=== PATIENT | female | born 1950 | race African-American/Black ===

== ENCOUNTER 2020-12-08 22:45 | Inpatient (IN) ==
[2020-12-09 00:17] LABS: Basophils % 0.2 %; Eosinophils # 0.3 K/mcL (0.0-0.6); Hematocrit 30.4 % (35.3-44.9); Hemoglobin 9.4 g/dL (11.5-15.4); Immature Granulocytes % 0.8 % (0-4); Lymphocytes # 0.9 K/mcL (0.6-4.6); Lymphocytes % 8.8 %; Mean Corpuscular HGB Conc 30.9 g/dL (31.6-35.5); Mean Corpuscular Hemoglobin 30.8 pg (28.0-33.3); Mean Corpuscular Volume 99.7 fL (83.0-100.0); Mean Platelet Volume 9.7 fL (9.4-12.4); Monocytes # 1.5 K/mcL (0.0-1.3); Monocytes % 14.2 %; Neutrophils # 7.5 K/mcL (1.6-8.9); Platelet Count 286 K/mcL (140-400); Red Blood Count 3.05 M/mcL (3.82-4.97); Red Cell Distribution Width 13.1 % (11.5-14.5); White Blood Count 10.3 K/mcL (4.3-11.1)
[2020-12-09] MEDS ORDERED: Norepinephrine 4 MG/254 ML IV.SOLN IVC SCH (02:30)
[2020-12-09 02:43] LABS: Influenza A PCR Negative (Negative); Influenza B PCR Negative (Negative); Resp. Syncytial Virus PCR Negative (Negative)
[2020-12-09 02:44] LABS: SARS-CoV-2 by PCR (In House) Negative (Negative)
[2020-12-09] MEDS ORDERED: Isovue-370 500 ML BOTTLE IVP ONE (03:37)
[2020-12-09] MEDS ORDERED: Naloxone 0.4 MG/ML INJ IVP PRN (09:20)
[2020-12-09] MEDS ORDERED: Ringers Solution, Lactated 1,000 ML IVC ONE (09:27)
[2020-12-09] MEDS ORDERED: Ringers Solution, Lactated 1,000 ML ONE (09:37)
[2020-12-09] MEDS ORDERED: Albumin 25% 25gram/100mL 25 GM/100 ML IV.SOLN IVPB ONE ×2 (12:45→20:59)
[2020-12-09 13:00] LABS: Bacteria,Urine Few per hpf (None-Few); Bilirubin,Urine Negative (Negative); Blood,Urine Trace (Negative); Clarity,Urine Turbid (Clear); Color,Urine Yellow (Yellow); Glucose,Urine (UA) Normal (Normal); Hyaline Casts,Urine Few per lpf (None Seen); Ketones,Urine Negative (Negative); Leukocyte Esterase,Urine Trace (Negative); Mucus,Urine Few per lpf (None-Few); Nitrite,Urine Negative (Negative); PH,Urine 5.5 pH Units (5.0-8.0); Protein,Urine 50 mg/dL (Neg-Trace); RBC,Urine 0-3 per hpf (0-3); Renal Epithelial Cells,Urine Few per hpf (None-Few); Specific Gravity,Urine 1.022 (1.010-1.025); Squamous Epithelial Cell,Urine Moderate per hpf (None-Few); Transitional Epi Cells,Urine Few per hpf (None-Few); Urobilinogen,Urine Normal (Normal)
[2020-12-09] MEDS: *HR* Heparin 5,000 UNIT/ML VIAL SQ SCH ×2 (13:20→21:15)
[2020-12-09 13:46] LABS: INR 1.2; Prothrombin Time 13.8 Seconds (9.4-12.1)
[2020-12-09 13:56] LABS: Albumin 3.3 g/dL (3.5-5.7); Albumin/Globulin Ratio 1.3 (1.1-2.2); Bilirubin,Total 0.4 mg/dL (0.3-1.0); Calcium 9.2 mg/dL (8.6-10.3); Globulin 2.6 g/dL (2.4-3.5); Potassium 4.2 mEq/L (3.5-5.1); Total Protein 5.9 g/dL (6.4-8.9)
[2020-12-09] MEDS ORDERED: Perit. Dialysis with Dex 1.5 % 12,000 ML PERITONEAL ONE (21:44)
[2020-12-10 01:31] LABS: Hematocrit 23.9 % (35.3-44.9); Mean Corpuscular HGB Conc 31.4 g/dL (31.6-35.5); Mean Corpuscular Hemoglobin 31.3 pg (28.0-33.3); Mean Corpuscular Volume 99.6 fL (83.0-100.0); Mean Platelet Volume 9.6 fL (9.4-12.4); Platelet Count 246 K/mcL (140-400); White Blood Count 7.1 K/mcL (4.3-11.1)
[2020-12-10 01:32] LABS: Hemoglobin 7.5 g/dL (11.5-15.4)
[2020-12-10 01:34] LABS: Hepatitis B Surface Antibody < 3.10 mIU/mL
[2020-12-10 01:46] LABS: Hepatitis B Surface Antigen Nonreactive (Nonreactive)
[2020-12-10 01:50] LABS: Calcium 9.2 mg/dL (8.6-10.3); Potassium 4.1 mEq/L (3.5-5.1)
[2020-12-10] MEDS ORDERED: Acetaminophen 325 MG TABLET PO ONE (02:08)
[2020-12-10] MEDS: *HR* Heparin 5,000 UNIT/ML VIAL SQ SCH ×3 (06:38→19:46)
[2020-12-10 13:47] LABS: Basophils % 0.4 %; Eosinophils # 0.2 K/mcL (0.0-0.6); Hematocrit 26.2 % (35.3-44.9); Hemoglobin 8.3 g/dL (11.5-15.4); Immature Granulocytes % 0.4 % (0-4); Lymphocytes # 0.8 K/mcL (0.6-4.6); Lymphocytes % 10.6 %; Mean Corpuscular HGB Conc 31.7 g/dL (31.6-35.5); Mean Corpuscular Hemoglobin 31.4 pg (28.0-33.3); Mean Corpuscular Volume 99.2 fL (83.0-100.0); Mean Platelet Volume 9.8 fL (9.4-12.4); Monocytes % 13.3 %; Neutrophils # 5.3 K/mcL (1.6-8.9); Platelet Count 259 K/mcL (140-400); Red Blood Count 2.64 M/mcL (3.82-4.97); Red Cell Distribution Width 13.1 % (11.5-14.5); Segmented Neutrophils % 72.3 %; White Blood Count 7.3 K/mcL (4.3-11.1)
[2020-12-10 13:51] LABS: % Iron Saturation 65 % (15-50); Amylase 66 Units/L (29-103); Iron 143 mcg/dL (50-170); Lipase 63 Units/L (11-82); Transferrin 158 mg/dL (203-362)
[2020-12-10 15:33] LABS: RBC,Peritoneal Fluid < 2000 RBC/mcL
[2020-12-10 15:36] LABS: Appearance of Peritoneal Fl CLEAR (Clear)
[2020-12-10 15:59] LABS: Basophils,Peritoneal Fluid 0 %; Eosinophils,Peritoneal Fluid 0 %
[2020-12-10] MEDS ORDERED: Perit. Dialysis with Dex 2.5 % 12,000 ML PERITONEAL ONE (18:15)
[2020-12-10] MEDS ORDERED: Gentamicin Oint 15 GM TUBE TP SCH (19:00)
[2020-12-11 02:57] LABS: Hematocrit 25.1 % (35.3-44.9); Hemoglobin 8.2 g/dL (11.5-15.4); Mean Corpuscular HGB Conc 32.7 g/dL (31.6-35.5); Mean Corpuscular Hemoglobin 31.9 pg (28.0-33.3); Mean Corpuscular Volume 97.7 fL (83.0-100.0); Mean Platelet Volume 9.6 fL (9.4-12.4); Platelet Count 276 K/mcL (140-400); Red Blood Count 2.57 M/mcL (3.82-4.97); Red Cell Distribution Width 12.9 % (11.5-14.5); White Blood Count 7.3 K/mcL (4.3-11.1)
[2020-12-11 03:19] LABS: Calcium 8.9 mg/dL (8.6-10.3); Potassium 3.8 mEq/L (3.5-5.1)
[2020-12-11 03:51] VITALS: TEMP 98
[2020-12-11] MEDS: *HR* Heparin 5,000 UNIT/ML VIAL SQ SCH (05:14)
[2020-12-11 07:07] VITALS: BP 101/56; PULSE 77; O2SAT 95
== END 2020-12-11 11:28 | disposition home or self-care (01) | DRG 871 ==
LOC: EMEROOARM 22:45 → CDU 22:45 → SUATTDRO 12-09 10:41 → 2ANU 12-09 11:18
PROVIDERS: ADMIT Internal Medicine; ATTEND Internal Medicine

== ENCOUNTER 2021-02-21 13:58 | Inpatient (IN) ==
[2021-02-21] MEDS ORDERED: cefTRIAXone 2,000 MG in 0.9 % Sodium Chloride Mini Bag 100 ML IVPB ONE (14:14)
[2021-02-21] MEDS ORDERED: Ondansetron 4 MG/2 ML VIAL IVP ONE (14:40)
[2021-02-21 15:11] LABS: VBG HCO3 27 mEq/L (21-27); VBG PCO2 52 mmHg (41-51); VBG PH 7.32 pH Units (7.32-7.42); VBG PO2 32 mmHg (25-50)
[2021-02-21 15:16] LABS: Basophils % 0.1 %; Eosinophils % 0.4 %; Hematocrit 34.3 % (35.3-44.9); Hemoglobin 10.7 g/dL (11.5-15.4); Immature Granulocytes % 0.7 % (0-4); Lymphocytes # 0.6 K/mcL (0.6-4.6); Lymphocytes % 8.6 %; Mean Corpuscular HGB Conc 31.2 g/dL (31.6-35.5); Mean Corpuscular Volume 99.4 fL (83.0-100.0); Mean Platelet Volume 10.1 fL (9.4-12.4); Monocytes # 0.5 K/mcL (0.0-1.3); Monocytes % 7.3 %; Neutrophils # 5.7 K/mcL (1.6-8.9); Platelet Count 254 K/mcL (140-400); Red Blood Count 3.45 M/mcL (3.82-4.97); Red Cell Distribution Width 13.7 % (11.5-14.5); Segmented Neutrophils % 82.9 %; White Blood Count 6.9 K/mcL (4.3-11.1)
[2021-02-21] MEDS ORDERED: 0.9 % Sodium Chloride 500 ML IVC ONE ×2 (15:17→17:15)
[2021-02-21 15:23] LABS: INR 1.1; Prothrombin Time 12.8 Seconds (9.4-12.1)
[2021-02-21 15:26] LABS: Activated Partial Thrombo Time 25.5 Seconds (26.0-36.0)
[2021-02-21 15:49] LABS: Albumin 3.4 g/dL (3.5-5.7); Albumin/Globulin Ratio 1.3 (1.1-2.2); Bilirubin,Indirect 0.4 mg/dL (0.0-1.0); Bilirubin,Total 0.4 mg/dL (0.3-1.0); Calcium 9.5 mg/dL (8.6-10.3); Globulin 2.6 g/dL (2.4-3.5); Magnesium 1.4 mg/dL (1.6-2.6); Potassium 2.9 mEq/L (3.5-5.1); Troponin I 0.06 ng/mL (< 0.04)
[2021-02-21] MEDS: 0.9 % Sodium Chloride 1,000 ML IVC SCH ×2 (15:54→21:29)
[2021-02-21] MEDS ORDERED: Magnesium Sulfate 1 GM/102 ML PIGGYBACK IVPB ONE ×2 (16:32→18:04)
[2021-02-21 17:31] LABS: Appearance of Peritoneal Fl HAZY (Clear)
[2021-02-21 17:42] LABS: Amylase,Peritoneal Fluid < 10 Units/L (No Ref Range); Glucose,Peritoneal Fluid 260 mg/dL (No Ref Range); RBC,Peritoneal Fluid < 2000 RBC/mcL; Total Protein,Peritoneal Fluid < 2.0 g/dL
[2021-02-21] MEDS ORDERED: Naloxone 0.4 MG/ML INJ IVP PRN (17:44)
[2021-02-21 17:51] LABS: Adenovirus Not Detected (Not Detect); Coronavirus 229E Not Detected (Not Detect); Coronavirus HKU1 Not Detected (Not Detect); Coronavirus NL63 Not Detected (Not Detect); Coronavirus OC43 Not Detected (Not Detect)
[2021-02-21 17:52] LABS: Bordetella Pertussis Not Detected (Not Detect); Chlamydophila pneumoniae Not Detected (Not Detect); Human Metapneumovirus Not Detected (Not Detect); Human Rhinovirus/Enterovirus Not Detected (Not Detect); Influenza A Subtype 2009 H1 Not Detected (Not Detect); Influenza B Not Detected (Not Detect); Mycoplasma pneumoniae Not Detected (Not Detect); Parainfluenza Virus 1 Not Detected (Not Detect); Parainfluenza Virus 2 Not Detected (Not Detect); Parainfluenza Virus 3 Not Detected (Not Detect); Parainfluenza Virus 4 Not Detected (Not Detect); Respiratory Syncytial Virus Not Detected (Not Detect); SARS-CoV-2 DETECTED (Not Detect)
[2021-02-21] MEDS ORDERED: Vancomycin 1,750 MG/517.5 ML IV.SOLN IVPB ONE (18:00)
[2021-02-21 18:16] LABS: Basophils,Peritoneal Fluid 0 %; Eosinophils,Peritoneal Fluid 0 %
[2021-02-21] MEDS: Aspirin Enteric Coated 325 MG Tablet PO SCH (21:35)
[2021-02-22] MEDS ORDERED: Dextrose Gel 15 GM/37.5 ML TUBE PO PRN ×2 (00:11)
[2021-02-22] MEDS ORDERED: *HR* Dextrose 50 % in Water (Syg) 50 ML SYRINGE IVP PRN (00:11)
[2021-02-22] MEDS ORDERED: D5% in Water 1,000 ML IVC PRN (00:11)
[2021-02-22] MEDS ORDERED: Potassium Chloride Elixir 20 MEQ/15 ML UDC PO ONE ×2 (00:12→15:00)
[2021-02-22] MEDS: Insulin LISPRO 300 UNITS/3 ML VIAL SUBQ SCH ×5 (00:37→21:12)
[2021-02-22 05:41] LABS: Basophils % 0.2 %; Hematocrit 30.7 % (35.3-44.9); Hemoglobin 9.9 g/dL (11.5-15.4); Immature Granulocytes % 2.4 % (0-4); Lymphocytes # 0.9 K/mcL (0.6-4.6); Lymphocytes % 4.5 %; Mean Corpuscular HGB Conc 32.2 g/dL (31.6-35.5); Mean Corpuscular Hemoglobin 32.7 pg (28.0-33.3); Mean Corpuscular Volume 101.3 fL (83.0-100.0); Mean Platelet Volume 9.8 fL (9.4-12.4); Monocytes # 1.2 K/mcL (0.0-1.3); Monocytes % 5.7 %; Platelet Count 252 K/mcL (140-400); Red Blood Count 3.03 M/mcL (3.82-4.97); Red Cell Distribution Width 13.8 % (11.5-14.5); Segmented Neutrophils % 87.2 %; White Blood Count 20.6 K/mcL (4.3-11.1)
[2021-02-22 05:55] LABS: Estimated Average Glucose 134 mg/dl; Hemoglobin A1C 6.3 %
[2021-02-22] MEDS: *HR* Heparin 5,000 UNIT/ML VIAL SQ SCH ×2 (06:06→17:15)
[2021-02-22] MEDS: 0.9 % Sodium Chloride 1,000 ML IVC SCH ×2 (06:16→21:01)
[2021-02-22 06:20] LABS: Calcium 8.5 mg/dL (8.6-10.3); Magnesium 1.5 mg/dL (1.6-2.6); Phosphorous 3.8 mg/dL (2.7-4.5); Potassium 3.3 mEq/L (3.5-5.1)
[2021-02-22] MEDS ORDERED: Perflutren Lipid Microsphere 1.3 ML in 0.9 % Sodium Chloride 8.7 ML IVP PRN (08:09)
[2021-02-22 11:48] LABS: Appearance of Peritoneal Fl CLOUDY (Clear)
[2021-02-22 12:47] LABS: Basophils,Peritoneal Fluid 0 %; Eosinophils,Peritoneal Fluid 0 %
[2021-02-22 13:48] LABS: Hepatitis B Surface Antibody < 3.10 mIU/mL
[2021-02-22 13:59] LABS: Hepatitis B Surface Antigen Nonreactive (Nonreactive)
[2021-02-22] MEDS ORDERED: cefTRIAXone 2,000 MG in 0.9 % Sodium Chloride Mini Bag 100 ML IVPB SCH (16:00)
[2021-02-22] MEDS: Cefepime HCl 1,000 MG in 0.9 % Sodium Chloride Mini Bag 100 ML IVPB SCH (17:15)
[2021-02-22] MEDS: Aspirin Enteric Coated 325 MG Tablet PO SCH (17:15)
[2021-02-23 02:06] LABS: Hematocrit 26.6 % (35.3-44.9); Mean Corpuscular HGB Conc 32.3 g/dL (31.6-35.5); Mean Corpuscular Hemoglobin 32.2 pg (28.0-33.3); Mean Corpuscular Volume 99.6 fL (83.0-100.0); Mean Platelet Volume 10.4 fL (9.4-12.4); Platelet Count 218 K/mcL (140-400); Red Blood Count 2.67 M/mcL (3.82-4.97); Red Cell Distribution Width 13.8 % (11.5-14.5)
[2021-02-23 02:16] LABS: Hemoglobin 8.6 g/dL (11.5-15.4); White Blood Count 19.4 K/mcL (4.3-11.1)
[2021-02-23 02:27] LABS: Calcium 7.9 mg/dL (8.6-10.3); Magnesium 1.9 mg/dL (1.6-2.6); Phosphorous 3.7 mg/dL (2.7-4.5); Potassium 3.8 mEq/L (3.5-5.1)
[2021-02-23 03:19] LABS: Lymphocytes # 0.6 K/mcL (0.6-4.6); Monocytes # 0.4 K/mcL (0.0-1.3); Neutrophils # 18.4 K/mcL (1.6-8.9)
[2021-02-23 03:20] LABS: Platelet Estimate Normal (Normal)
[2021-02-23] MEDS: *HR* Heparin 5,000 UNIT/ML VIAL SQ SCH ×2 (05:53→20:53)
[2021-02-23] MEDS: Insulin LISPRO 300 UNITS/3 ML VIAL SUBQ SCH ×4 (07:52→21:43)
[2021-02-23] MEDS ORDERED: Isovue-370 500 ML BOTTLE IVP ONE (10:14)
[2021-02-23] MEDS: 0.9 % Sodium Chloride 1,000 ML IVC SCH (10:47)
[2021-02-23] MEDS: *HR* Acetylcysteine 20% 600 MG/3 ML ORAL SYRINGE PO SCH ×2 (12:14→20:50)
[2021-02-23] MEDS: Ondansetron 4 MG/2 ML VIAL IVP PRN (12:42)
[2021-02-23] MEDS: Cefepime HCl 1,000 MG in 0.9 % Sodium Chloride Mini Bag 100 ML IVPB SCH (16:23)
[2021-02-23] MEDS: Ergocalciferol (VIT D2) 50,000 UNIT (1.25MG) CAP PO SCH (16:25)
[2021-02-23] MEDS: Aspirin Enteric Coated 325 MG Tablet PO SCH (17:14)
[2021-02-23 20:47] LABS: Bacteria,Urine Few per hpf (None-Few); Bilirubin,Urine Negative (Negative); Blood,Urine Small (Negative); Clarity,Urine Turbid (Clear); Color,Urine Light-Yellow (Yellow); Glucose,Urine (UA) Normal (Normal); Hyaline Casts,Urine Few per lpf (None Seen); Ketones,Urine Negative (Negative); Leukocyte Esterase,Urine Negative (Negative); Mucus,Urine Few per lpf (None-Few); Nitrite,Urine Negative (Negative); PH,Urine 5.5 pH Units (5.0-8.0); Protein,Urine 70 mg/dL (Neg-Trace); RBC,Urine 0-3 per hpf (0-3); Specific Gravity,Urine 1.016 (1.010-1.025); Squamous Epithelial Cell,Urine Many per hpf (None-Few); Urobilinogen,Urine Normal (Normal)
[2021-02-23 20:57] LABS: Campylobacter by PCR Not detected (Not detect)
[2021-02-23 20:58] LABS: C.difficile Toxin A/B Gene PCR DETECTED (Not detect); E. coli O157 by PCR Not detected (Not detect); Enteroaggregative E.coli(EAEC) Not detected (Not detect); Enteropathogenic E.coli(EPEC) Not detected (Not detect); Enterotoxigenic E.coli (ETEC) Not detected (Not detect); Plesiomonas shigelloides PCR Not detected (Not detect); Salmonella PCR Not detected (Not detect); Shigalike tox-prod E coli STEC Not detected (Not detect); Vibrio PCR Not detected (Not detect); Vibrio cholerae PCR Not detected (Not detect); Yersinia enterocolitica PCR Not detected (Not detect)
[2021-02-23 20:59] LABS: Adenovirus F 40/41 PCR Not detected (Not detect); Astrovirus PCR Not detected (Not detect); Cryptosporidium by PCR Not detected (Not detect); Cyclospora cayetanensis PCR Not detected (Not detect); Entamoeba histolytica PCR Not detected (Not detect); Giardia lamblia PCR Not detected (Not detect); Norovirus GI/GII PCR Not detected (Not detect); Rotavirus A PCR Not detected (Not detect); Sapovirus PCR Not detected (Not detect); Shig/EnteroinvasiveE coli EIEC Not detected (Not detect)
[2021-02-23] MEDS: Vancomycin Oral Soln 125 MG/2.5 ML UDC PO SCH (22:19)
[2021-02-24 02:32] LABS: Basophils % 0.1 %; Eosinophils # 0.1 K/mcL (0.0-0.6); Eosinophils % 0.3 %; Hematocrit 31.3 % (35.3-44.9); Hemoglobin 9.2 g/dL (11.5-15.4); Immature Granulocytes % 1.8 % (0-4); Lymphocytes # 0.6 K/mcL (0.6-4.6); Lymphocytes % 4.1 %; Mean Corpuscular HGB Conc 29.4 g/dL (31.6-35.5); Mean Corpuscular Volume 105.4 fL (83.0-100.0); Mean Platelet Volume 10.2 fL (9.4-12.4); Monocytes % 6.3 %; Neutrophils # 13.1 K/mcL (1.6-8.9); Platelet Count 209 K/mcL (140-400); Red Blood Count 2.97 M/mcL (3.82-4.97); Red Cell Distribution Width 13.7 % (11.5-14.5); Segmented Neutrophils % 87.4 %
[2021-02-24 03:03] LABS: BUN/Creatinine Ratio 4 (6-26); Blood Urea Nitrogen 47 mg/dL (8-23); Carbon Dioxide 17 mEq/L (23-29); Chloride 103 mEq/L (98-107); Glucose 64 mg/dL (70-105); Iron 89 mcg/dL (50-170); Magnesium 2.1 mg/dL (1.6-2.6); Osmolality,Calculated 282 (280-300); Potassium 3.5 mEq/L (3.5-5.1); Sodium 131 mEq/L (136-145); eGFR For African Americans 4 (> 60); eGFR For Non-African Americans 4 (> 60)
[2021-02-24 03:24] LABS: Ferritin > 1500 ng/mL (10-120)
[2021-02-24 03:46] LABS: Folate 4.5 ng/mL (3.0-16.0)
[2021-02-24] MEDS: *HR* Heparin 5,000 UNIT/ML VIAL SQ SCH ×3 (04:42→20:34)
[2021-02-24 05:53] LABS: % Iron Saturation 50 % (15-50); Transferrin 128 mg/dL (203-362)
[2021-02-24 07:56] LABS: Fluid Source for Triglycerides PERITONEAL FL
[2021-02-24] MEDS ORDERED: Perit. Dialysis with Dex 2.5 % 6,000 ML PERITONEAL ONE ×2 (09:00→19:00)
[2021-02-24] MEDS: *HR* Acetylcysteine 20% 600 MG/3 ML ORAL SYRINGE PO SCH ×2 (09:30→20:34)
[2021-02-24] MEDS: Vancomycin Oral Soln 125 MG/2.5 ML UDC PO SCH ×4 (09:31→20:34)
[2021-02-24] MEDS: Insulin LISPRO 300 UNITS/3 ML VIAL SUBQ SCH ×4 (09:31→20:44)
[2021-02-24] MEDS: 0.9 % Sodium Chloride 1,000 ML IVC SCH (09:31)
[2021-02-24 10:04] LABS: Triglycerides,Body Fluid 16 mg/dL
[2021-02-24] MEDS ORDERED: 0.9 % Sodium Chloride 1,000 ML IVC SCH (11:00)
[2021-02-24] MEDS: Aspirin Enteric Coated 81 MG Tablet PO SCH (17:19)
[2021-02-24] MEDS ORDERED: Perit. Dialysis with Dex 1.5 % 6,000 ML PERITONEAL ONE (19:00)
[2021-02-24] MEDS: Lactobacillus 1 EACH CAP.SPRINK PO SCH (20:32)
[2021-02-25] MEDS: 0.9 % Sodium Chloride 1,000 ML IVC SCH (05:00)
[2021-02-25] MEDS: *HR* Heparin 5,000 UNIT/ML VIAL SQ SCH ×3 (05:01→21:18)
[2021-02-25 06:12] LABS: Calcium 7.8 mg/dL (8.6-10.3); Magnesium 1.9 mg/dL (1.6-2.6); Phosphorous 2.5 mg/dL (2.7-4.5); Potassium 3.2 mEq/L (3.5-5.1)
[2021-02-25] MEDS: Lactobacillus 1 EACH CAP.SPRINK PO SCH ×2 (07:59→21:18)
[2021-02-25] MEDS: Insulin LISPRO 300 UNITS/3 ML VIAL SUBQ SCH ×4 (07:59→21:19)
[2021-02-25] MEDS: Vancomycin Oral Soln 125 MG/2.5 ML UDC PO SCH ×4 (07:59→21:17)
[2021-02-25] MEDS ORDERED: PERIT DIALYSIS PERITONEAL ONE (09:00)
[2021-02-25] MEDS ORDERED: VANCOMYCIN PERITONEAL ONE (09:00)
[2021-02-25] MEDS ORDERED: DEX PERITONEAL ONE (09:00)
[2021-02-25] MEDS ORDERED: Perit. Dialysis with Dex 2.5 % 2,000 ML PERITONEAL ONE (10:00)
[2021-02-25 12:18] LABS: Basophils % 0.2 %; Eosinophils # 0.3 K/mcL (0.0-0.6); Eosinophils % 3.4 %; Lymphocytes # 0.4 K/mcL (0.6-4.6); Lymphocytes % 4.5 %; Mean Corpuscular Hemoglobin 31.4 pg (28.0-33.3); Mean Platelet Volume 9.9 fL (9.4-12.4); Monocytes # 0.8 K/mcL (0.0-1.3); Monocytes % 10.4 %; Neutrophils # 6.3 K/mcL (1.6-8.9); Platelet Count 226 K/mcL (140-400); Red Blood Count 2.55 M/mcL (3.82-4.97); Red Cell Distribution Width 13.2 % (11.5-14.5); Segmented Neutrophils % 78.5 %; White Blood Count 8.1 K/mcL (4.3-11.1)
[2021-02-25] MEDS: Aspirin Enteric Coated 81 MG Tablet PO SCH (17:05)
[2021-02-25] MEDS ORDERED: Perit. Dialysis with Dex 1.5 % 12,000 ML PERITONEAL ONE (19:00)
[2021-02-26] MEDS: *HR* Heparin 5,000 UNIT/ML VIAL SQ SCH ×3 (04:13→22:17)
[2021-02-26 04:39] LABS: Basophils % 0.5 %; Eosinophils # 0.3 K/mcL (0.0-0.6); Eosinophils % 3.4 %; Hematocrit 26.2 % (35.3-44.9); Hemoglobin 8.6 g/dL (11.5-15.4); Immature Granulocytes % 5.6 % (0-4); Lymphocytes # 0.5 K/mcL (0.6-4.6); Lymphocytes % 5.7 %; Mean Corpuscular HGB Conc 32.8 g/dL (31.6-35.5); Mean Corpuscular Hemoglobin 30.9 pg (28.0-33.3); Mean Corpuscular Volume 94.2 fL (83.0-100.0); Mean Platelet Volume 10.5 fL (9.4-12.4); Monocytes % 11.5 %; Platelet Count 212 K/mcL (140-400); Red Blood Count 2.78 M/mcL (3.82-4.97); Red Cell Distribution Width 13.1 % (11.5-14.5); Segmented Neutrophils % 73.3 %; White Blood Count 8.8 K/mcL (4.3-11.1)
[2021-02-26 04:40] LABS: Calcium 7.8 mg/dL (8.6-10.3); Magnesium 1.8 mg/dL (1.6-2.6); Neutrophils # 6.5 K/mcL (1.6-8.9); Phosphorous 2.8 mg/dL (2.7-4.5); Potassium 3.2 mEq/L (3.5-5.1)
[2021-02-26] MEDS: Insulin LISPRO 300 UNITS/3 ML VIAL SUBQ SCH ×3 (07:07→16:05)
[2021-02-26] MEDS: Vancomycin Oral Soln 125 MG/2.5 ML UDC PO SCH ×4 (08:42→22:16)
[2021-02-26] MEDS: Lactobacillus 1 EACH CAP.SPRINK PO SCH (08:42)
[2021-02-26] MEDS: 0.9 % Sodium Chloride 1,000 ML IVC SCH (14:47)
[2021-02-26] MEDS ORDERED: *HR* LORazepam 0.5 MG TABLET PO ONE (14:57)
[2021-02-26] MEDS: Aspirin Enteric Coated 81 MG Tablet PO SCH (17:24)
[2021-02-26] MEDS: Darbepoetin 100 MCG/0.5 ML SYRINGE SQ SCH (17:25)
[2021-02-26] MEDS ORDERED: Perit. Dialysis with Dex 1.5 % 12,000 ML PERITONEAL ONE (19:00)
[2021-02-27] MEDS: Insulin LISPRO 300 UNITS/3 ML VIAL SUBQ SCH ×5 (00:21→23:51)
[2021-02-27] MEDS: Lactobacillus 1 EACH CAP.SPRINK PO SCH ×3 (00:21→21:14)
[2021-02-27 05:13] LABS: Hematocrit 24.7 % (35.3-44.9); Hemoglobin 8.1 g/dL (11.5-15.4); Mean Corpuscular HGB Conc 32.8 g/dL (31.6-35.5); Mean Corpuscular Hemoglobin 31.5 pg (28.0-33.3); Mean Corpuscular Volume 96.1 fL (83.0-100.0); Mean Platelet Volume 10.2 fL (9.4-12.4); Nucleated Red Blood Cells 0.4 /100 WBC (0); Platelet Count 263 K/mcL (140-400); Red Blood Count 2.57 M/mcL (3.82-4.97); Red Cell Distribution Width 13.2 % (11.5-14.5); White Blood Count 7.8 K/mcL (4.3-11.1)
[2021-02-27 05:38] LABS: Lymphocytes # 0.3 K/mcL (0.6-4.6); Monocytes # 1.6 K/mcL (0.0-1.3); Neutrophils # 5.5 K/mcL (1.6-8.9); Platelet Estimate Normal (Normal)
[2021-02-27 05:55] LABS: Calcium 7.7 mg/dL (8.6-10.3); Magnesium 1.6 mg/dL (1.6-2.6); Phosphorous 2.7 mg/dL (2.7-4.5); Potassium 3.1 mEq/L (3.5-5.1)
[2021-02-27] MEDS: *HR* Heparin 5,000 UNIT/ML VIAL SQ SCH ×3 (06:47→21:13)
[2021-02-27] MEDS: Vancomycin Oral Soln 125 MG/2.5 ML UDC PO SCH ×4 (09:42→21:13)
[2021-02-27] MEDS: Aspirin Enteric Coated 81 MG Tablet PO SCH (17:04)
[2021-02-27] MEDS ORDERED: Perit. Dialysis with Dex 1.5 % 12,000 ML PERITONEAL ONE (20:50)
[2021-02-28] MEDS: 0.9 % Sodium Chloride 1,000 ML IVC SCH ×2 (01:12→08:33)
[2021-02-28 04:35] LABS: Hematocrit 27.6 % (35.3-44.9); Hemoglobin 8.3 g/dL (11.5-15.4); Mean Corpuscular HGB Conc 30.1 g/dL (31.6-35.5); Mean Corpuscular Hemoglobin 30.9 pg (28.0-33.3); Mean Platelet Volume 9.7 fL (9.4-12.4); Nucleated Red Blood Cells 1.4 /100 WBC (0); Platelet Count 297 K/mcL (140-400); Red Blood Count 2.69 M/mcL (3.82-4.97); Red Cell Distribution Width 13.6 % (11.5-14.5); White Blood Count 8.7 K/mcL (4.3-11.1)
[2021-02-28 04:36] LABS: Mean Corpuscular Volume 102.6 fL (83.0-100.0)
[2021-02-28 04:55] LABS: Calcium 7.4 mg/dL (8.6-10.3); Magnesium 1.5 mg/dL (1.6-2.6); Phosphorous 2.3 mg/dL (2.7-4.5); Potassium 3.1 mEq/L (3.5-5.1)
[2021-02-28 04:57] LABS: Basophils # 0.2 K/mcL (0.0-0.2); Lymphocytes # 0.4 K/mcL (0.6-4.6); Monocytes # 0.5 K/mcL (0.0-1.3); Neutrophils # 6.6 K/mcL (1.6-8.9)
[2021-02-28 04:58] LABS: Platelet Estimate Normal (Normal)
[2021-02-28] MEDS: *HR* Heparin 5,000 UNIT/ML VIAL SQ SCH ×3 (06:14→21:15)
[2021-02-28] MEDS: Lactobacillus 1 EACH CAP.SPRINK PO SCH ×2 (08:32→22:55)
[2021-02-28] MEDS: Vancomycin Oral Soln 125 MG/2.5 ML UDC PO SCH ×4 (08:32→21:14)
[2021-02-28] MEDS: Ondansetron 4 MG/2 ML VIAL IVP PRN (08:32)
[2021-02-28] MEDS: Insulin LISPRO 300 UNITS/3 ML VIAL SUBQ SCH ×4 (08:41→21:15)
[2021-02-28] MEDS: Aspirin Enteric Coated 81 MG Tablet PO SCH (16:52)
[2021-02-28] MEDS ORDERED: Magnesium Sulfate 1 GM/102 ML PIGGYBACK IVPB ONE (17:00)
[2021-02-28] MEDS ORDERED: Perit. Dialysis with Dex 1.5 % 12,000 ML PERITONEAL ONE (19:00)
[2021-03-01] MEDS: *HR* Heparin 5,000 UNIT/ML VIAL SQ SCH ×3 (05:44→20:09)
[2021-03-01] MEDS: Insulin LISPRO 300 UNITS/3 ML VIAL SUBQ SCH ×4 (07:20→20:09)
[2021-03-01] MEDS: Lactobacillus 1 EACH CAP.SPRINK PO SCH ×2 (08:05→19:38)
[2021-03-01] MEDS: 0.9 % Sodium Chloride 1,000 ML IVC SCH (08:07)
[2021-03-01] MEDS: Vancomycin Oral Soln 125 MG/2.5 ML UDC PO SCH ×4 (08:07→19:42)
[2021-03-01 08:43] LABS: Hematocrit 28.1 % (35.3-44.9); Hemoglobin 8.8 g/dL (11.5-15.4); Mean Corpuscular HGB Conc 31.3 g/dL (31.6-35.5); Mean Corpuscular Volume 98.9 fL (83.0-100.0); Mean Platelet Volume 9.5 fL (9.4-12.4); Nucleated Red Blood Cells 1.9 /100 WBC (0); Platelet Count 352 K/mcL (140-400); Red Blood Count 2.84 M/mcL (3.82-4.97); Red Cell Distribution Width 13.7 % (11.5-14.5); White Blood Count 11.3 K/mcL (4.3-11.1)
[2021-03-01] MEDS ORDERED: DEX PERITONEAL ONE (09:00)
[2021-03-01] MEDS ORDERED: PERIT DIALYSIS PERITONEAL ONE (09:00)
[2021-03-01] MEDS ORDERED: VANCOMYCIN PERITONEAL ONE (09:00)
[2021-03-01 09:02] LABS: Calcium 7.8 mg/dL (8.6-10.3); Potassium 3.3 mEq/L (3.5-5.1)
[2021-03-01 09:18] LABS: Anisocytosis 1+ (Not Present); Eosinophils # 0.1 K/mcL (0.0-0.6); Lymphocytes # 1.2 K/mcL (0.6-4.6); Monocytes # 0.9 K/mcL (0.0-1.3); Neutrophils # 8.9 K/mcL (1.6-8.9); Poikilocytosis 1+ (Not Present)
[2021-03-01 09:19] LABS: Large Platelets Present (Not Present); Platelet Estimate Normal (Normal); Polychromasia 1+ (Not Present)
[2021-03-01] MEDS: Aspirin Enteric Coated 81 MG Tablet PO SCH (16:59)
[2021-03-01] MEDS ORDERED: Perit. Dialysis with Dex 2.5 % 6,000 ML PERITONEAL ONE (19:00)
[2021-03-01] MEDS ORDERED: Perit. Dialysis with Dex 1.5 % 6,000 ML PERITONEAL ONE (19:00)
[2021-03-02 03:49] LABS: Hematocrit 25.4 % (35.3-44.9); Hemoglobin 8.2 g/dL (11.5-15.4); Mean Corpuscular HGB Conc 32.3 g/dL (31.6-35.5); Mean Corpuscular Hemoglobin 32.2 pg (28.0-33.3); Mean Corpuscular Volume 99.6 fL (83.0-100.0); Mean Platelet Volume 9.4 fL (9.4-12.4); Nucleated Red Blood Cells 1.5 /100 WBC (0); Platelet Count 336 K/mcL (140-400); Red Blood Count 2.55 M/mcL (3.82-4.97); Red Cell Distribution Width 13.7 % (11.5-14.5); White Blood Count 10.9 K/mcL (4.3-11.1)
[2021-03-02 04:07] LABS: Calcium 7.6 mg/dL (8.6-10.3); Potassium 3.3 mEq/L (3.5-5.1)
[2021-03-02 04:23] LABS: Lymphocytes # 0.2 K/mcL (0.6-4.6); Monocytes # 1.1 K/mcL (0.0-1.3); Neutrophils # 8.9 K/mcL (1.6-8.9); Platelet Estimate Normal (Normal)
[2021-03-02] MEDS: *HR* Heparin 5,000 UNIT/ML VIAL SQ SCH ×3 (06:00→21:16)
[2021-03-02] MEDS: Lactobacillus 1 EACH CAP.SPRINK PO SCH ×2 (08:43→21:17)
[2021-03-02] MEDS: Vancomycin Oral Soln 125 MG/2.5 ML UDC PO SCH ×4 (08:43→21:16)
[2021-03-02] MEDS: Insulin LISPRO 300 UNITS/3 ML VIAL SUBQ SCH ×4 (08:44→21:17)
[2021-03-02] MEDS ORDERED: DEX PERITONEAL ONE (14:00)
[2021-03-02] MEDS ORDERED: VANCOMYCIN PERITONEAL ONE (14:00)
[2021-03-02] MEDS ORDERED: PERIT DIALYSIS PERITONEAL ONE (14:00)
[2021-03-02] MEDS ORDERED: Perit. Dialysis with Dex 2.5 % 2,000 ML PERITONEAL ONE (14:13)
[2021-03-02 14:26] LABS: Magnesium 1.6 mg/dL (1.6-2.6); Phosphorous 3.2 mg/dL (2.7-4.5)
[2021-03-02] MEDS: Ergocalciferol (VIT D2) 50,000 UNIT (1.25MG) CAP PO SCH (15:15)
[2021-03-02] MEDS ORDERED: Isovue-370 500 ML BOTTLE PO ONE (16:16)
[2021-03-02] MEDS: Aspirin Enteric Coated 81 MG Tablet PO SCH (16:28)
[2021-03-02] MEDS: 0.9 % Sodium Chloride 1,000 ML IVC SCH (17:50)
[2021-03-02] MEDS ORDERED: Perit. Dialysis with Dex 1.5 % 6,000 ML PERITONEAL ONE (23:00)
[2021-03-02] MEDS ORDERED: Perit. Dialysis with Dex 2.5 % 6,000 ML PERITONEAL ONE (23:00)
[2021-03-03 01:58] LABS: Hematocrit 25.8 % (35.3-44.9); Mean Corpuscular Hemoglobin 30.9 pg (28.0-33.3); Mean Corpuscular Volume 99.6 fL (83.0-100.0); Mean Platelet Volume 9.6 fL (9.4-12.4); Platelet Count 338 K/mcL (140-400); Red Blood Count 2.59 M/mcL (3.82-4.97); Red Cell Distribution Width 13.7 % (11.5-14.5)
[2021-03-03 02:19] LABS: Potassium 3.4 mEq/L (3.5-5.1)
[2021-03-03 02:20] LABS: Calcium 7.4 mg/dL (8.6-10.3)
[2021-03-03] MEDS: *HR* Heparin 5,000 UNIT/ML VIAL SQ SCH ×3 (05:36→20:35)
[2021-03-03] MEDS: Vancomycin Oral Soln 125 MG/2.5 ML UDC PO SCH ×4 (08:05→20:35)
[2021-03-03] MEDS: Lactobacillus 1 EACH CAP.SPRINK PO SCH ×2 (08:05→20:35)
[2021-03-03] MEDS: 0.9 % Sodium Chloride 1,000 ML IVC SCH (08:06)
[2021-03-03] MEDS: Insulin LISPRO 300 UNITS/3 ML VIAL SUBQ SCH ×4 (08:07→20:41)
[2021-03-03] MEDS: Aspirin Enteric Coated 81 MG Tablet PO SCH (17:18)
[2021-03-03] MEDS ORDERED: Perit. Dialysis with Dex 1.5 % 6,000 ML PERITONEAL ONE (21:00)
[2021-03-03] MEDS ORDERED: Perit. Dialysis with Dex 2.5 % 6,000 ML PERITONEAL ONE (21:00)
[2021-03-04 03:08] LABS: Hemoglobin 7.9 g/dL (11.5-15.4); Mean Corpuscular HGB Conc 31.6 g/dL (31.6-35.5); Mean Corpuscular Hemoglobin 31.7 pg (28.0-33.3); Mean Corpuscular Volume 100.4 fL (83.0-100.0); Mean Platelet Volume 9.6 fL (9.4-12.4); Platelet Count 354 K/mcL (140-400); Red Blood Count 2.49 M/mcL (3.82-4.97); Red Cell Distribution Width 13.7 % (11.5-14.5); White Blood Count 10.4 K/mcL (4.3-11.1)
[2021-03-04 03:34] LABS: Calcium 7.3 mg/dL (8.6-10.3); Potassium 3.7 mEq/L (3.5-5.1)
[2021-03-04] MEDS ORDERED: Acetaminophen IV 1,000 MG/100 ML BAG IVPB ONE (03:53)
[2021-03-04] MEDS: *HR* Heparin 5,000 UNIT/ML VIAL SQ SCH ×3 (05:31→21:51)
[2021-03-04] MEDS: Insulin LISPRO 300 UNITS/3 ML VIAL SUBQ SCH ×3 (08:31→17:45)
[2021-03-04] MEDS: Lactobacillus 1 EACH CAP.SPRINK PO SCH ×2 (09:14→21:51)
[2021-03-04] MEDS: Vancomycin Oral Soln 125 MG/2.5 ML UDC PO SCH ×4 (09:15→22:11)
[2021-03-04] MEDS: Ondansetron 4 MG/2 ML VIAL IVP PRN (16:22)
[2021-03-04] MEDS: *HR* OxyCODONE Immed Rel 5 MG TABLET PO PRN (16:24)
[2021-03-04] MEDS: Aspirin Enteric Coated 81 MG Tablet PO SCH (18:30)
[2021-03-04] MEDS ORDERED: Perit. Dialysis with Dex 2.5 % 6,000 ML PERITONEAL ONE (19:00)
[2021-03-04] MEDS ORDERED: Perit. Dialysis with Dex 4.25% 6,000 ML PERITONEAL SCH (19:00)
[2021-03-04] MEDS ORDERED: Perit. Dialysis with Dex 1.5 % 6,000 ML PERITONEAL ONE (19:00)
[2021-03-04] MEDS: 0.9 % Sodium Chloride 1,000 ML IVC SCH (21:51)
[2021-03-05] MEDS: Insulin LISPRO 300 UNITS/3 ML VIAL SUBQ SCH ×6 (00:38→21:12)
[2021-03-05 05:09] LABS: Hematocrit 27.4 % (35.3-44.9); Hemoglobin 8.4 g/dL (11.5-15.4); Mean Corpuscular HGB Conc 30.7 g/dL (31.6-35.5); Mean Corpuscular Hemoglobin 30.5 pg (28.0-33.3); Mean Corpuscular Volume 99.6 fL (83.0-100.0); Mean Platelet Volume 9.6 fL (9.4-12.4); Platelet Count 372 K/mcL (140-400); Red Blood Count 2.75 M/mcL (3.82-4.97); Red Cell Distribution Width 13.7 % (11.5-14.5); White Blood Count 13.7 K/mcL (4.3-11.1)
[2021-03-05 05:26] LABS: Calcium 7.4 mg/dL (8.6-10.3); Potassium 3.8 mEq/L (3.5-5.1)
[2021-03-05] MEDS: *HR* Heparin 5,000 UNIT/ML VIAL SQ SCH ×3 (06:44→21:18)
[2021-03-05] MEDS: Lactobacillus 1 EACH CAP.SPRINK PO SCH ×2 (09:40→21:18)
[2021-03-05] MEDS: Vancomycin Oral Soln 125 MG/2.5 ML UDC PO SCH ×4 (09:40→21:18)
[2021-03-05] MEDS: Darbepoetin 100 MCG/0.5 ML SYRINGE SQ SCH (15:25)
[2021-03-05] MEDS: *HR* OxyCODONE Immed Rel 5 MG TABLET PO PRN (15:54)
[2021-03-05] MEDS: Aspirin Enteric Coated 81 MG Tablet PO SCH (18:21)
[2021-03-05] MEDS ORDERED: Perit. Dialysis with Dex 2.5 % 6,000 ML PERITONEAL ONE (19:00)
[2021-03-05] MEDS ORDERED: Perit. Dialysis with Dex 1.5 % 6,000 ML PERITONEAL ONE (19:00)
[2021-03-05] MEDS: 0.9 % Sodium Chloride 1,000 ML IVC SCH (21:19)
[2021-03-06] MEDS: *HR* Heparin 5,000 UNIT/ML VIAL SQ SCH ×3 (05:12→20:32)
[2021-03-06] MEDS: Lactobacillus 1 EACH CAP.SPRINK PO SCH ×2 (07:53→20:33)
[2021-03-06] MEDS: Vancomycin Oral Soln 125 MG/2.5 ML UDC PO SCH ×4 (07:54→20:33)
[2021-03-06] MEDS: *HR* OxyCODONE Immed Rel 5 MG TABLET PO PRN (08:22)
[2021-03-06] MEDS: Insulin LISPRO 300 UNITS/3 ML VIAL SUBQ SCH ×4 (08:23→22:09)
[2021-03-06 14:10] LABS: Basophils % 0.2 %; Eosinophils # 0.1 K/mcL (0.0-0.6); Eosinophils % 0.7 %; Hematocrit 28.7 % (35.3-44.9); Hemoglobin 8.9 g/dL (11.5-15.4); Immature Granulocytes % 1.1 % (0-4); Lymphocytes # 0.3 K/mcL (0.6-4.6); Lymphocytes % 2.2 %; Mean Corpuscular Hemoglobin 31.1 pg (28.0-33.3); Mean Corpuscular Volume 100.3 fL (83.0-100.0); Mean Platelet Volume 9.7 fL (9.4-12.4); Monocytes # 1.7 K/mcL (0.0-1.3); Neutrophils # 12.7 K/mcL (1.6-8.9); Platelet Count 402 K/mcL (140-400); Red Blood Count 2.86 M/mcL (3.82-4.97); Red Cell Distribution Width 13.4 % (11.5-14.5); Segmented Neutrophils % 84.8 %
[2021-03-06 14:30] LABS: Albumin 2.4 g/dL (3.5-5.7); Calcium 7.5 mg/dL (8.6-10.3); Potassium 4.5 mEq/L (3.5-5.1)
[2021-03-06] MEDS: Aspirin Enteric Coated 81 MG Tablet PO SCH (16:41)
[2021-03-06] MEDS ORDERED: Perit. Dialysis with Dex 2.5 % 6,000 ML PERITONEAL ONE (20:00)
[2021-03-06] MEDS ORDERED: Perit. Dialysis with Dex 1.5 % 6,000 ML PERITONEAL ONE (20:00)
[2021-03-06] MEDS: 0.9 % Sodium Chloride 1,000 ML IVC SCH (20:32)
[2021-03-07] MEDS: *HR* Heparin 5,000 UNIT/ML VIAL SQ SCH ×3 (04:47→21:21)
[2021-03-07] MEDS ORDERED: Perit. Dialysis with Dex 2.5 % 2,000 ML PERITONEAL ONE ×2 (09:15→10:00)
[2021-03-07] MEDS: Insulin LISPRO 300 UNITS/3 ML VIAL SUBQ SCH ×4 (09:15→21:32)
[2021-03-07] MEDS: Vancomycin Oral Soln 125 MG/2.5 ML UDC PO SCH ×4 (09:53→21:22)
[2021-03-07] MEDS: Lactobacillus 1 EACH CAP.SPRINK PO SCH ×2 (09:53→21:21)
[2021-03-07] MEDS: 0.9 % Sodium Chloride 1,000 ML IVC SCH (09:53)
[2021-03-07] MEDS: DEX PERITONEAL ONE ×2 (10:22→11:09)
[2021-03-07] MEDS: PERIT DIALYSIS PERITONEAL ONE ×2 (10:22→11:09)
[2021-03-07] MEDS: VANCOMYCIN PERITONEAL ONE ×2 (10:22→11:09)
[2021-03-07 10:54] LABS: Glucose,Peritoneal Fluid 635 mg/dL (No Ref Range); Total Protein,Peritoneal Fluid < 2.0 g/dL
[2021-03-07 10:59] LABS: RBC,Peritoneal Fluid < 2000 RBC/mcL
[2021-03-07 11:00] LABS: Appearance of Peritoneal Fl HAZY (Clear)
[2021-03-07 12:32] LABS: Basophils,Peritoneal Fluid 0 %
[2021-03-07] MEDS: *HR* OxyCODONE Immed Rel 5 MG TABLET PO PRN (12:46)
[2021-03-07 13:55] LABS: Basophils % 0.2 %; Eosinophils # 0.1 K/mcL (0.0-0.6); Eosinophils % 0.7 %; Hematocrit 27.1 % (35.3-44.9); Hemoglobin 8.4 g/dL (11.5-15.4); Immature Granulocytes % 1.4 % (0-4); Lymphocytes # 0.2 K/mcL (0.6-4.6); Lymphocytes % 1.9 %; Mean Corpuscular Hemoglobin 30.4 pg (28.0-33.3); Mean Corpuscular Volume 98.2 fL (83.0-100.0); Mean Platelet Volume 9.5 fL (9.4-12.4); Monocytes # 1.7 K/mcL (0.0-1.3); Monocytes % 12.9 %; Neutrophils # 10.6 K/mcL (1.6-8.9); Platelet Count 397 K/mcL (140-400); Red Blood Count 2.76 M/mcL (3.82-4.97); Red Cell Distribution Width 13.3 % (11.5-14.5); Segmented Neutrophils % 82.9 %; White Blood Count 12.8 K/mcL (4.3-11.1)
[2021-03-07 14:37] LABS: Calcium 7.3 mg/dL (8.6-10.3); Potassium 4.5 mEq/L (3.5-5.1)
[2021-03-07] MEDS: Aspirin Enteric Coated 81 MG Tablet PO SCH (17:23)
[2021-03-08] MEDS: *HR* Heparin 5,000 UNIT/ML VIAL SQ SCH ×3 (05:42→21:14)
[2021-03-08 06:12] LABS: Basophils % 0.3 %; Eosinophils # 0.1 K/mcL (0.0-0.6); Eosinophils % 0.7 %; Hematocrit 28.1 % (35.3-44.9); Hemoglobin 8.8 g/dL (11.5-15.4); Lymphocytes # 0.4 K/mcL (0.6-4.6); Lymphocytes % 3.7 %; Mean Corpuscular HGB Conc 31.3 g/dL (31.6-35.5); Mean Corpuscular Volume 98.9 fL (83.0-100.0); Mean Platelet Volume 10.3 fL (9.4-12.4); Monocytes # 1.9 K/mcL (0.0-1.3); Monocytes % 16.4 %; Neutrophils # 8.8 K/mcL (1.6-8.9); Nucleated Red Blood Cells 0.2 /100 WBC (0); Platelet Count 408 K/mcL (140-400); Red Blood Count 2.84 M/mcL (3.82-4.97); Red Cell Distribution Width 13.4 % (11.5-14.5); Segmented Neutrophils % 74.9 %; White Blood Count 11.7 K/mcL (4.3-11.1)
[2021-03-08] MEDS: Insulin LISPRO 300 UNITS/3 ML VIAL SUBQ SCH ×4 (07:50→21:06)
[2021-03-08] MEDS: Lactobacillus 1 EACH CAP.SPRINK PO SCH ×2 (07:56→21:15)
[2021-03-08] MEDS: Vancomycin Oral Soln 125 MG/2.5 ML UDC PO SCH ×4 (08:00→21:15)
[2021-03-08] MEDS ORDERED: *HR* FentaNYL (PF) 100 MCG/2 ML VIAL IVP PRN ×2 (08:24→14:57)
[2021-03-08] MEDS ORDERED: *HR* OxyCODONE Immed Rel 5 MG TABLET PO PRN ×2 (08:24→14:57)
[2021-03-08] MEDS ORDERED: Albuterol 2.5 MG/3 ML NEBULIZER IH PRN ×2 (08:24→14:57)
[2021-03-08] MEDS ORDERED: Ondansetron 4 MG/2 ML VIAL IVP PRN ×3 (08:24→14:57)
[2021-03-08] MEDS ORDERED: Lidocaine -MPF 2% 5 ML VIAL ONE (08:27)
[2021-03-08] MEDS ORDERED: *HR* Propofol 200 MG/20 ML VIAL IVP ONE ×2 (08:27→09:14)
[2021-03-08 11:41] LABS: Calcium 7.5 mg/dL (8.6-10.3); Potassium 5.4 mEq/L (3.5-5.1)
[2021-03-08] MEDS: 0.9 % Sodium Chloride 1,000 ML IVC SCH ×2 (11:44→17:16)
[2021-03-08] MEDS ORDERED: SODIUM ZIRCONIUM CYCLOSILICATE 5 GM POWD.PACK PO SCH ×2 (12:00→18:00)
[2021-03-08] MEDS ORDERED: Vancomycin 1,750 MG in 0.9 % Sodium Chloride 250 ML IVPB ONE (12:58)
[2021-03-08] MEDS ORDERED: D5% in Water 1,000 ML IVC PRN (14:57)
[2021-03-08] MEDS ORDERED: Naloxone 0.4 MG/ML INJ IVP PRN (14:57)
[2021-03-08] MEDS ORDERED: Dextrose Gel 15 GM/37.5 ML TUBE PO PRN ×2 (14:57)
[2021-03-08] MEDS ORDERED: *HR* Dextrose 50 % in Water (Syg) 50 ML SYRINGE IVP PRN (14:57)
[2021-03-09] MEDS: *HR* Heparin 5,000 UNIT/ML VIAL SQ SCH ×3 (04:44→20:55)
[2021-03-09 05:03] LABS: Hematocrit 28.6 % (35.3-44.9); Hemoglobin 8.9 g/dL (11.5-15.4); Mean Corpuscular HGB Conc 31.1 g/dL (31.6-35.5); Mean Corpuscular Hemoglobin 30.9 pg (28.0-33.3); Mean Corpuscular Volume 99.3 fL (83.0-100.0); Mean Platelet Volume 9.7 fL (9.4-12.4); Platelet Count 528 K/mcL (140-400); Red Blood Count 2.88 M/mcL (3.82-4.97); Red Cell Distribution Width 13.1 % (11.5-14.5); White Blood Count 10.3 K/mcL (4.3-11.1)
[2021-03-09 05:19] LABS: Calcium 8.1 mg/dL (8.6-10.3); Potassium 5.6 mEq/L (3.5-5.1)
[2021-03-09] MEDS: Insulin LISPRO 300 UNITS/3 ML VIAL SUBQ SCH ×4 (08:22→20:54)
[2021-03-09] MEDS ORDERED: 0.9 % Sodium Chloride 250 ML IVC PRN (08:27)
[2021-03-09] MEDS ORDERED: 0.9 % Sodium Chloride 1,000 ML PRIME SCH (08:30)
[2021-03-09] MEDS: Lactobacillus 1 EACH CAP.SPRINK PO SCH ×2 (08:32→20:54)
[2021-03-09] MEDS ORDERED: *HR* Midazolam HCl 2 MG/2 ML VIAL IVP ONE ×2 (10:08→10:13)
[2021-03-09] MEDS ORDERED: *HR* FentaNYL (PF) 100 MCG/2 ML VIAL IVP ONE ×3 (10:08→10:45)
[2021-03-09] MEDS ORDERED: *HR* Heparin 5,000 UNIT/ML VIAL ONE (10:34)
[2021-03-09] MEDS: ceFAZolin 1,000 MG in 0.9 % Sodium Chloride Mini Bag 100 ML IVPB SCH (10:37)
[2021-03-09] MEDS: Vancomycin Oral Soln 125 MG/2.5 ML UDC PO SCH ×4 (11:14→20:54)
[2021-03-09] MEDS ORDERED: *HR* Heparin 10,000 UNIT/10 ML VIAL IV PRN (12:55)
[2021-03-09] MEDS: *HR* OxyCODONE Immed Rel 5 MG TABLET PO PRN (16:37)
[2021-03-09] MEDS: 0.9 % Sodium Chloride 1,000 ML IVC SCH (16:38)
[2021-03-10 05:49] LABS: Basophils # 0.1 K/mcL (0.0-0.2); Basophils % 0.5 %; Eosinophils # 0.1 K/mcL (0.0-0.6); Eosinophils % 0.5 %; Hematocrit 28.8 % (35.3-44.9); Hemoglobin 8.8 g/dL (11.5-15.4); Immature Granulocytes % 1.8 % (0-4); Lymphocytes # 0.3 K/mcL (0.6-4.6); Lymphocytes % 2.6 %; Mean Corpuscular HGB Conc 30.6 g/dL (31.6-35.5); Mean Corpuscular Hemoglobin 30.8 pg (28.0-33.3); Mean Corpuscular Volume 100.7 fL (83.0-100.0); Mean Platelet Volume 9.6 fL (9.4-12.4); Monocytes # 1.4 K/mcL (0.0-1.3); Monocytes % 13.5 %; Neutrophils # 8.3 K/mcL (1.6-8.9); Platelet Count 410 K/mcL (140-400); Red Blood Count 2.86 M/mcL (3.82-4.97); Red Cell Distribution Width 13.4 % (11.5-14.5); Segmented Neutrophils % 81.1 %; White Blood Count 10.2 K/mcL (4.3-11.1)
[2021-03-10] MEDS: *HR* Heparin 5,000 UNIT/ML VIAL SQ SCH ×3 (05:57→21:21)
[2021-03-10] MEDS: *HR* OxyCODONE Immed Rel 5 MG TABLET PO PRN ×2 (06:57→13:30)
[2021-03-10] MEDS: Insulin LISPRO 300 UNITS/3 ML VIAL SUBQ SCH ×4 (07:16→20:36)
[2021-03-10] MEDS: Vancomycin Oral Soln 125 MG/2.5 ML UDC PO SCH (07:32)
[2021-03-10] MEDS: ceFAZolin 1,000 MG in 0.9 % Sodium Chloride Mini Bag 100 ML IVPB SCH (07:32)
[2021-03-10] MEDS: Lactobacillus 1 EACH CAP.SPRINK PO SCH ×2 (07:32→21:21)
[2021-03-10 08:06] LABS: Albumin 2.6 g/dL (3.5-5.7); Bilirubin,Total 0.3 mg/dL (0.3-1.0); Globulin 2.5 g/dL (2.4-3.5); Potassium 5.1 mEq/L (3.5-5.1); Total Protein 5.1 g/dL (6.4-8.9)
[2021-03-10] MEDS ORDERED: *HR* Heparin 10,000 UNIT/10 ML VIAL IV PRN (08:47)
[2021-03-10] MEDS ORDERED: 0.9 % Sodium Chloride 250 ML IVC PRN (08:47)
[2021-03-10] MEDS ORDERED: HydrOXYzine SYP 10 MG/5 ML UDC PO ONE (11:24)
[2021-03-10 14:12] LABS: Hematocrit 26.7 % (35.3-44.9); Hemoglobin 7.9 g/dL (11.5-15.4); Mean Corpuscular HGB Conc 29.6 g/dL (31.6-35.5); Mean Corpuscular Volume 104.7 fL (83.0-100.0); Mean Platelet Volume 9.3 fL (9.4-12.4); Platelet Count 265 K/mcL (140-400); Red Blood Count 2.55 M/mcL (3.82-4.97); Red Cell Distribution Width 13.5 % (11.5-14.5); White Blood Count 9.1 K/mcL (4.3-11.1)
[2021-03-10 14:31] LABS: Calcium 7.7 mg/dL (8.6-10.3); Potassium 4.6 mEq/L (3.5-5.1)
[2021-03-11] MEDS: *HR* Heparin 5,000 UNIT/ML VIAL SQ SCH ×3 (04:44→22:24)
[2021-03-11] MEDS: 0.9 % Sodium Chloride 1,000 ML IVC SCH (04:44)
[2021-03-11 06:50] LABS: Hematocrit 25.1 % (35.3-44.9); Hemoglobin 7.4 g/dL (11.5-15.4); Mean Corpuscular HGB Conc 29.5 g/dL (31.6-35.5); Mean Corpuscular Hemoglobin 30.3 pg (28.0-33.3); Mean Corpuscular Volume 102.9 fL (83.0-100.0); Mean Platelet Volume 9.2 fL (9.4-12.4); Platelet Count 259 K/mcL (140-400); Red Blood Count 2.44 M/mcL (3.82-4.97); Red Cell Distribution Width 13.6 % (11.5-14.5); White Blood Count 7.1 K/mcL (4.3-11.1)
[2021-03-11 07:13] LABS: Calcium 7.7 mg/dL (8.6-10.3); Potassium 4.7 mEq/L (3.5-5.1)
[2021-03-11] MEDS: Insulin LISPRO 300 UNITS/3 ML VIAL SUBQ SCH ×4 (07:48→22:21)
[2021-03-11] MEDS: Lactobacillus 1 EACH CAP.SPRINK PO SCH ×2 (08:13→22:23)
[2021-03-11] MEDS ORDERED: 0.9 % Sodium Chloride 250 ML IVC PRN (08:23)
[2021-03-11] MEDS ORDERED: *HR* Heparin 10,000 UNIT/10 ML VIAL IV PRN (08:23)
[2021-03-12 03:30] LABS: Albumin 2.2 g/dL (3.5-5.7); Calcium 7.2 mg/dL (8.6-10.3); Phosphorous 3.3 mg/dL (2.7-4.5); Potassium 4.1 mEq/L (3.5-5.1)
[2021-03-12] MEDS: *HR* Heparin 5,000 UNIT/ML VIAL SQ SCH (05:18)
[2021-03-12 07:39] VITALS: TEMP 98.2
[2021-03-12] MEDS: 0.9 % Sodium Chloride 1,000 ML IVC SCH (07:59)
[2021-03-12] MEDS: Insulin LISPRO 300 UNITS/3 ML VIAL SUBQ SCH ×2 (08:00→11:50)
[2021-03-12] MEDS: Lactobacillus 1 EACH CAP.SPRINK PO SCH (08:21)
[2021-03-12] MEDS ORDERED: Darbepoetin 100 MCG/0.5 ML SYRINGE SQ SCH (09:00)
[2021-03-12] MEDS ORDERED: Ergocalciferol (VIT D2) 50,000 UNIT (1.25MG) CAP PO SCH (09:00)
[2021-03-12 11:04] VITALS: BP 154/77; PULSE 88; O2SAT 96
== END 2021-03-12 12:37 | disposition home health service (06) | DRG 907 ==
LOC: 2ANU 13:58 → EMEROOARM 13:58 → 2ANU 20:12 → SUATTDRO 02-22 14:47 → 2ANU 02-25 09:15
PROVIDERS: ADMIT Student in an Organized Health Care Education/Training Program; ATTEND Family Medicine
PROC: IRPERMA (2021-03-09 12:00)